=== PATIENT | female | born 1965 | race Caucasian/White ===

== ENCOUNTER → 2019-03-13 | Day surgery (SDC) | payer OTHER ==
[2019-03-01 16:56] LABS: BASOPHILS # (AUTO) 0.1 (0.0-0.1); BASOPHILS % 0.5 % (0.0-1.0); EOSINOPHILS # (AUTO) 0.2 (0.0-0.4); EOSINOPHILS % 1.4 % (0.0-6.0); HEMATOCRIT 40.7 % (34.2-44.1); HEMOGLOBIN 13.2 g/dL (12.0-16.0); LYMPHOCYTES # (AUTO) 3.7 (1.0-3.2); LYMPHOCYTES % 34.5 % (18.0-39.1); MEAN CORPUSCULAR HEMOGLOBIN 27.3 pg (28-32); MEAN CORPUSCULAR HGB CONC 32.4 g/dL (31-35); MEAN CORPUSCULAR VOLUME 84.1 fL (81-99); MONOCYTES # (AUTO) 0.6 (0.2-0.8); NEUTROPHILS # (AUTO) 6.2 (2.1-6.9); NEUTROPHILS % 57.2 % (38.7-80.0); PLATELET COUNT 321 x10e3/uL (140-360); RED BLOOD COUNT 4.84 x10e6/uL (3.6-5.1); RED CELL DISTRIBUTION WIDTH 14.9 % (11.7-14.4)
[2019-03-01 17:13] LABS: ANION GAP 14.1 mmol/L (8-16); BLOOD UREA NITROGEN 14 mg/dL (7-26); BUN/CREATININE RATIO 18 (6-25); CALCIUM 10.1 mg/dL (8.4-10.2); CARBON DIOXIDE 27 mmol/L (22-29); CHLORIDE 103 mmol/L (98-107); EST GLOMERULAR FILTRATION RATE > 60 ML/MIN (60-); GLUCOSE 99 mg/dL (74-118); POTASSIUM 4.1 mmol/L (3.5-5.1); SODIUM 140 mmol/L (136-145)
[~2019-03-13] MED LIST: CYCLOBENZAPRINE5 MG PO; ESTRADIOL1 MG PO; FENTANYL CITRATE/PF 100MCG/2 ML INJ ONE; LIDOCAINE HCL 2% LOCAL INJ 5 ML SDV VIAL INJ ONE; MIDAZOLAM HCL 2 MG/2 ML VIAL ONE; OMEPRAZOLE40 MG PO; PROPOFOL IV EMULSION 10 MG/ML 20 ML VIAL ONE; SYNTHROID100 MCG PO
--- OUTSIDE RECORDS SUMMARY | 2019-03-13 05:39 | XMS REPORT ---
Author Author [facility], [place] Address Unknown Phone Unavailable Care Team Providers Care Top Polisher Name Role Phone Unavailable Unavailable Problems This patient has no known problems. Allergies, Adverse Reactions, Alerts This patient has no known allergies or adverse reactions. Medications This patient has no known medications. Results Test Description Test Time Test Comments Text Results Atomic Results Result Comments BREAST ULTRASOUND BILATERAL 2019-02-20 08:27:35 - BREAST ULTRASOUND BILATERALULTRASOUND OF BOTH BREASTS: 02/20/2019CLINICAL: Supplemental Screening for Dense Breast. Comparison is made to exams dated 02/08/2018 ultrasound, [facility], and 01/06/2018 mammogram - [facility]. Ultrasound of both breasts was performed. Gomez scale images of the real-time examination were reviewed. No abnormalities were seen sonographically in either breast. IMPRESSION: NEGATIVE There is no sonographic evidence of malignancy. Resume annual screening mammography in one year. De Bae M.D. qn/:02/20/2019 08:27:35 Entry: - 02/22/2019 11:13:38Imaging Technologist: Verenice WEST, [facility]-letter sent: BIRADS 1-2 Combo FU Letter Ultrasound BI-RADS: 1 Negative SCR MAMM BILATERAL JENNIFER CAD DIGITAL 2019-02-20 08:26:16 - SCR MAMM BILATERAL JENNIFER CAD DIGITALBILATERAL DIGITAL SCREENING MAMMOGRAM 3D/2D WITH CAD: 02/20/2019CLINICAL: Asymptomatic. Digital breast tomosynthesis was performed in addition to routine CC and MLO views. Current mammographic images were evaluated by either a [facility] M-Vu or a [facility] ImageChecker CAD (computer aided detection system). Comparison is made to exams dated 01/06/2018 mammogram - [facility], 02/07/2016 mammogram, and 08/09/2014 mammogram - [facility]-. There are scattered fibroglandular tissues in both breasts. No suspicious mass, architectural distortion, malignant type calcification, or lymph node abnormality detected. Breast architecture is stable compared to prior exams.IMPRESSION: NEGATIVEThere is no mammographic evidence of malignancy. De Bae M.D. qn/penrad:02/20/2019 08:26:16 Entry: - 02/22/2019 11:13:15Imaging Technologist: Saloni WEST, [facility] 1 Negative BREAST ULTRASOUND BILATERAL 2018-02-08 09:35:08 - BREAST ULTRASOUND BILATERALULTRASOUND OF BOTH BREASTS: 02/08/2018CLINICAL: Supplemental Screening for Dense Breast. Comparison is made to [facility], 08/09/2014 mammogram, and [facility]20/2012 [facility]. Color flow and real-time ultrasound of both breasts were performed. There are no sonographic abnormalities in both breasts.Imaging of the axilla demonstrates normal-appearing lymph nodes.IMPRESSION: NEGATIVE There is no sonographic evidence of malignancy. Resume annual mammogram screening schedule is recommended. Jake Briceño M.D. el/:02/08/2018 09:35:08 Entry: - 02/12/2018 08:50:47Imaging Technologist: Akiko WEST, [facility] BIRADS 1-2 Normal Ultrasound BI-RADS: 1 Negative
--- NOTE | 2019-03-13 07:15 | NUR ---
SPIRITUAL CARE - Pre-Surgery Assessment: Pt in bed. Pt reported supportive attention from family and friends. Intervention: I provided pastoral presence, hospitality, and sympathetic listening. I acquainted pt with availability of car spotter while hospitalized. Outcome: Pt expressed appreciation for visit. No need for follow up indicated at this time. ROLANDO Dodsonlain Spiritual Care Department O: [phone] Pager: [phone] ([phone])
[2019-03-13 10:40] VITALS: BP 148/79
== END | disposition home or self-care (01) ==
LOC: OR 05:29
PROVIDERS: ATTEND Surgery
DX: R10.9 Unspecified abdominal pain (principal); Z01.810 Encounter for preprocedural cardiovascular examination; Z01.812 Encounter for preprocedural laboratory examination; G89.29 Other chronic pain; K21.9 Gastro-esophageal reflux disease without esophagitis; K44.9 Diaphragmatic hernia without obstruction or gangrene; E03.9 Hypothyroidism, unspecified; K21.0 Gastro-esophageal reflux disease with esophagitis; K29.70 Gastritis, unspecified, without bleeding; K29.80 Duodenitis without bleeding; Z88.5 Allergy status to narcotic agent; Z88.0 Allergy status to penicillin; Z88.2 Allergy status to sulfonamides; Z88.8 Allergy status to other drugs, medicaments and biological substances; K30 Functional dyspepsia
CPT/HCPCS: 36415; 43239; 45378; 80048; 85025; 88305; 88312; 93005; J2001; J2250; J2704; J3010